=== PATIENT | female | born 1935 | race African-American/Black ===

== ENCOUNTER 2017-03-01 17:40 | Emergency (ER) | payer MEDICARE, BC ==
[~2017-03-01] VITALS: Ht 162.6 cm; Wt 112.0 kg
[~2017-03-01 17:40] MED LIST: AMLO2.5T45 PO; ANAS1TAB7 PO; INSU3INS6 SQ; LOSARTAN PO; MULTIVITAMIN; PIOG30TA2 PO; SITA100T6 PO
[2017-03-01] MEDS ORDERED: KETOROLAC 60MG/2ML VIAL IM ONE (19:15)
[2017-03-01] MEDS ORDERED: KETOROLAC 15MG/ML VIAL IM ONE (19:30)
[2017-03-01 21:52] VITALS: BP 163/98
== END 2017-03-01 22:03 | disposition home or self-care (01) ==
LOC: ER 17:40
DX: M54.9 Dorsalgia, unspecified (principal); Z79.899 Other long term (current) drug therapy; E11.9 Type 2 diabetes mellitus without complications; I10 Essential (primary) hypertension
CPT/HCPCS: 72070; 72100; 96372; 99284; J1885

== ENCOUNTER → 2018-06-01 | Outpatient (CLI) | payer MEDICARE, BC ==
[~2018-06-01] MED LIST changes: +PIOG30TA10 PO; -PIOG30TA2 PO; +SITA100T11 PO; -SITA100T6 PO
== END | disposition home or self-care (01) ==
LOC: RAD 11:57
PROVIDERS: ATTEND Family Medicine
DX: M16.11 Unilateral primary osteoarthritis, right hip (principal); I10 Essential (primary) hypertension; E11.9 Type 2 diabetes mellitus without complications
CPT/HCPCS: 73502